=== PATIENT | female | born 1975 | race African-American/Black ===

== ENCOUNTER 2018-02-24 21:14 | Emergency (ER) | payer OTHER ==
[~2018-02-24] VITALS: Ht 167.6 cm; Wt 72.6 kg
[~2018-02-24 21:14] MED LIST: ALBUTEROL SULF8.5 GM INH; AZITHROMYCIN250 MG ORAL; FERROUS SULFAT325 MG ORAL; KEFLEX500 MG ORAL; NKM
[2018-02-24 22:01] VITALS: BP 120/69
[2018-02-24] MEDS ORDERED: Acetaminophen 500mg (ES) tab PO ONE (22:15)
[2018-02-24] MEDS ORDERED: Neosporin Oint Ud Pkt TOP ONE (22:15)
[2018-02-24] MEDS ORDERED: Tetanus/Diptheria/Pertussis Vaccine 0.5ml Syr IM ONE (22:15)
[2018-02-24] MEDS ORDERED: Lidocaine 1% 10mg/ml/Epi 0.005mg/ml 30ml vial INJ ONE (23:30)
--- NOTE | 2018-02-25 00:01 | Emergency Room Report ---
History of Present Illness General Chief Complaint: General Complaint Source: Patient Present Illness HPI The patient sat on a steak knife on her bed. She cut her buttock area on the left-hand side. Bleeding was controlled with pressure. She has severe pain there at this time 8/10, sharp and localized. It's been greater than 10 years for her last tetanus shot. No numbness. No medical problems. Allergies: Coded Allergies: No Known Allergies (Unverified , 10/31/15) Patient History Social History: Reports: smoking Social History Narrative with significant other Reviewed Nursing Documentation: PMH: Agreed; PSxH: Agreed Nursing Documentation-PMH Past Medical History: No Stated History Review of Systems Constitutional: Denies: fever Musculoskeletal: Reports: see HPI Skin: Reports: see HPI Neurological: Reports: see HPI Hematologic/Lymphatic: Reports: see HPI Physical Exam Vital Signs Date Time Temp Pulse Resp B/P (MAP) Pulse Ox O2 Delivery O2 Flow Rate FiO2 02/24/18 21:53 98.2 70 18 120/69 98 Room Air 98.2 Sp02 EP Interpretation: reviewed, normal General Appearance: well appearing, no apparent distress Head: normocephalic, atraumatic Eyes: bilateral eye normal inspection, bilateral eye PERRL ENT: hearing grossly normal, normal voice Neck: full range of motion, supple Respiratory: no respiratory distress, speaking full sentences Musculoskeletal: normal range of motion Neurologic: alert, normal gait, grossly normal Psychiatric: mood/affect normal Skin: no rash, laceration - L gluteus Procedures Laceration/Wound Repair Laceration/Wound Repair : Consent: Verbal Wound Location: other - Left gluteal area Wound's Depth, Shape: into muscle, linear Wound Length (cm): 2 - 2.5 Wound Explored: clean Irrigated w/ Saline (ccs): 20 Anesthesia: Lidocaine w/ Epi Volume Anesthetic (ccs): 3 Wound Debrided: None Suture Size/Type: 5:0, nylon Layer Closure?: No Sterile Dressing Applied?: Yes Splint Applied?: No Patient Tolerated: Well Complications: None Medical Decision Making Diagnostic Impression: Primary Impression: Left gluteal laceration Additional Impression: Laceration ER Course Patient with laceration that needs repair. She'll also be given Tylenol and tetanus. See procedure note. Patient stable for outpatient observation and treatment Status: improved Disposition: HOME, SELF-CARE Condition: Improved Scripts Bacitracin (Bacitracin) 28.4 Gm Oint...g. 1 APPLIC TOPIC BID, #20 GM Prov: Justin Modi M.D. 02/25/18 Ibuprofen* (MOTRIN*) 600 Mg Tablet 600 MG ORAL Q6H PRN for For Pain, #20 TAB Prov: Justin Modi M.D. 02/25/18 Referrals: [facility],REFERRING (PCP) Justin Modi M.D. Feb 25, 2018 00:01
[2018-02-25] MEDS ORDERED: IBUPROFEN600 MG ORAL (00:03)
[2018-02-25] MEDS ORDERED: BACITRACIN15 GM TOPIC (00:03)
[2018-02-25 00:05] VITALS: BP 121/68
[2018-02-25 00:15] VITALS: BP 121/68
== END 2018-02-25 00:05 | disposition home or self-care (01) ==
LOC: EMR 22:08
DX: S31.821A Laceration without foreign body of left buttock, initial encounter (principal); W26.0XXA Contact with knife, initial encounter; Y92.003 Bedroom of unspecified non-institutional (private) residence as the place of occurrence of the external cause; Z23 Encounter for immunization
CPT/HCPCS: 12001; 90471; 90715; 96374; 99284; Z7502

== ENCOUNTER 2019-06-14 23:24 | Emergency (ER) | payer OTHER ==
[~2019-06-14] VITALS: Ht 167.6 cm; Wt 72.6 kg
[~2019-06-14 23:24] MED LIST changes: +BACITRACIN15 GM TOPIC; +IBUPROFEN600 MG ORAL; +METRONIDAZOLE500 MG ORAL
--- NOTE | 2019-06-14 23:34 | NUR ---
ED Nurse Note: pt walked in to ED C/O vaginal discharge since 06/12/19 accompanied by foul odor urine. Pt also states states she has a burning senasation when she urinates. pt is alert x4. VSS
[2019-06-14 23:37] VITALS: BP 122/75
[2019-06-14 23:51] LABS: APPEARANCE,URINE CLEAR; BILIRUBIN, URINE NEGATIVE (NEGATIVE); COLOR,URINE PALE YELLOW; GLUCOSE, URINE (UA) NEGATIVE (NEGATIVE); KETONES,URINE NEGATIVE (NEGATIVE); LEUKOCYTE ESTERASE ,URINE 1+ (NEGATIVE); NITRITE,URINE NEGATIVE (NEGATIVE); PH,URINE 5 (4.5-8.0); PROTEIN,URINE NEGATIVE (NEGATIVE); UROBILINOGEN,URINE NORMAL MG/DL (0.0-1.0)
--- NOTE | 2019-06-15 | Emergency Room Report ---
History of Present Illness General Chief Complaint: Female Urogenital Problems Source: Patient Present Illness [facility] This is a 44-year-old female with no past medical history. She presents with complaint of vaginal discharge and foul odor. Onset for about 4 5 days now. She is sexually active with unprotected sex with one partner. No other complaint. No dysuria or frequency. History of trichomonal infection. Allergies: Coded Allergies: No Known Allergies (Unverified , 10/31/15) Patient History Past Medical History: see triage record, old chart reviewed Past Surgical History: none Pertinent Family History: none Social History: Denies: smoking Last Menstrual Period: 05/22/2019 Now: No Immunizations: other Reviewed Nursing Documentation: PMH: Agreed; PSxH: Agreed Nursing Documentation-PMH Past Medical History: No Stated History Review of Systems Eye: Denies: eye pain, blurred vision ENT: Denies: ear pain, nose congestion, throat swelling Respiratory: Denies: cough, shortness of breath Cardiovascular: Denies: chest pain, palpitations Gastrointestinal: Denies: abdominal pain, diarrhea, nausea, vomiting Genitourinary: Reports: discharge Musculoskeletal: Denies: back pain, joint pain Skin: Denies: rash Neurological: Denies: headache, numbness Endocrine: Denies: increased thirst, increased urine Hematologic/Lymphatic: Denies: easy bruising All Other Systems: negative except mentioned in HPI Physical Exam Vital Signs Date Time Temp Pulse Resp B/P (MAP) Pulse Ox O2 Delivery O2 Flow Rate FiO2 06/14/19 23:27 98.1 77 16 120/75 (90) 96 Room Air Vitals normal Sp02 EP Interpretation: reviewed, normal General Appearance: well appearing, no apparent distress, alert Head: normocephalic, atraumatic Eyes: bilateral eye PERRL, bilateral eye EOMI ENT: hearing grossly normal, normal pharynx Neck: full range of motion, supple, no meningismus Respiratory: chest non-tender, lungs clear, normal breath sounds Cardiovascular #1: regular rate, rhythm, no murmur Gastrointestinal: normal bowel sounds, non tender, no mass, no organomegaly, no bruit, non-distended Genitourinary: other - External exam normal. Internal exam show whitish discharge. Exam done with female nurse as cushion padder. Musculoskeletal: back normal, gait/station normal, normal range of motion Psychiatric: mood/affect normal Medical Decision Making Diagnostic Impression: Primary Impression: Acute cervicitis ER Course Patient with a cervicitis secondary to trichomonas. We will go ahead and cover for gonorrhea and chlamydia. Recommend that her partners get treated also. Recommend outpatient testing for HIV, hepatitis, syphilis and other STDs. Last Vital Signs Date Time Temp Pulse Resp B/P (MAP) Pulse Ox O2 Delivery O2 Flow Rate FiO2 06/14/19 23:37 97.9 81 18 122/75 98 Room Air Status: improved Disposition: HOME, SELF-CARE Condition: Stable Additional Instructions: Have your partner get treated also. Recommend outpatient testing for HIV, hepatitis, syphilis, and other STDs. Return if worse. Follow-up with your doctor as needed. Phuc Pierson MD Jun 15, 2019 00:00
[2019-06-15] MEDS ORDERED: Azithromycin 250mg tab ORAL ONE (00:30)
[2019-06-15] MEDS ORDERED: metroNIDAZOLE 500mg tab ORAL ONE (00:30)
[2019-06-15] MEDS ORDERED: Lidocaine 1% MPF 10mg/ml 5ml INJ ONE (00:30)
[2019-06-15 00:36] VITALS: BP 128/75
--- NOTE | 2019-06-15 00:36 | NUR ---
ER DISCHARGE NOTE: Patient is cleared to be discharged per ERMD, pt is aox4, on room air, with stable vital signs. pt was given d instructions, pt was able to verbalize understanding, pt id band removed without complications. pt is able to ambulate with steady gait. pt took all belongings.
== END 2019-06-15 00:36 | disposition home or self-care (01) ==
LOC: EMR 23:47
DX: A59.09 Other urogenital trichomoniasis (principal)
CPT/HCPCS: 81003; 81025; 87210; 96372; 96374; J0696; Q0144; Z7502; 99284